=== PATIENT | female | born 1940 | race Two or more races ===

== ENCOUNTER 2024-07-14 17:21 | Inpatient (IN) | payer OTHER ==
[~2024-07-14] VITALS: Ht 152.4 cm; Wt 68.0 kg
[2024-07-14] MEDS ORDERED: 0.9 % SODIUM CHLORIDE 1,000 ML IV SCH ×2 (18:15→22:30)
--- NOTE | 2024-07-14 19:27 | NUR ---
SE REALIZA LAB CAM ORDEN MEDICA BAJO MEDIDAS ASEPTICAS. SE ORIENTA PTE QUIEN REFIERE ENTENDER Y ACEPTAR.
[2024-07-14 20:07] LABS: BASO % 0.4 % (0.1-1.2); EOS % 1.3 % (0.7-7.0); HEMATOCRIT 17.9 % (34.1-44.9); HEMOGLOBIN 6.1 g/dL (11.2-15.7); LYMPH % 41.8 % (19.3-53.1); MEAN CORPUSCULAR HEMOGLOBIN 36.5 pg (25.6-32.2); MONO % 7.1 % (4.7-12.5); PLATELET COUNT 209 K/uL (163-369); RED BLOOD COUNT 1.67 M/uL (3.93-5.22)
[2024-07-14 20:08] LABS: EOS # 0.09 (0.04-0.54); LYMPH # 2.99 (1.18-3.74); NEUT # 3.39 (1.56-6.13)
[2024-07-14 20:13] LABS: INR < 0.93; PARTIAL THROMBOPLASTIN TIME 24.4 SECONDS (22.0-34.0)
[2024-07-14 20:18] LABS: ALBUMIN 3.6 gm/dL (3.4-5.0); BILIRUBIN TOTAL 1.44 mg/dL (0.3-1.2); CALCIUM 8.3 mg/dL (8.5-10.1); CREATININE SERUM 0.93 mg/dL (0.55-1.02); GFR 57.3; GLOBULINA 3.3 G/DL (2.4-3.5); POTASSIUM 4.12 mEq/L (3.5-5.1); TOTAL PROTEIN 6.9 gm/dL (6.4-8.2)
[2024-07-14] MEDS ORDERED: FUROsemide 20 MG/2 ML VIAL IV SCH (21:00)
[2024-07-14] MEDS ORDERED: FAMOTIDINE/PF 20 MG in 0.9 % SODIUM CHLORIDE 8 ML IV PUSH SCH (22:20)
--- NOTE | 2024-07-14 22:21 | NUR ---
SE ORIENTA PTE SOBRE TX A SEGUIR, LA MISMA REFIERE ENTENDER. PTE FIRMA CONSENTIMIENTO DE TRANSFUSION. SE JOSE MUESTRAS DE TUBOS PILOTOS. SE LLAMA A BANCO DE TIBURCIO PARA ACLARAR ANA SOBRE QUE PTE TIENE DIFERENTE NOMBRE EN PLAN MEDICO PRIMARIO Y PLAN MEDICO SECUNDARIO. PERSONAL DE BANCO REFIERE QUE DEBE TENER EN LA REQUZICION EL MISMO NOMBRE QUE TIENE EN SHANNON PLAN PRIMARIO. SE SACA COPIA DE ID Y PLAN PRIMARIO Y SE ENVIA JUNTO A REQUIZISICON. SE LLEVA REQUIZICION A LAB, LA VERIFICA Y LLAMA A BANCO DE TIBURCIO PERSONAL DE LAB FIGUEROA.
[2024-07-14] MEDS ORDERED: ONDANSETRON HCL 4 MG in 0.9 % SODIUM CHLORIDE 50 ML IV PRN (22:30)
[2024-07-15 03:02] VITALS: BP 133/69
[2024-07-15 04:20] VITALS: BP 128/66
[2024-07-15 08:21] VITALS: BP 113/59
[2024-07-15] MEDS ORDERED: IRON FUM,PS/FOLIC/BCOMP,C NO.9 1 CAP CAPSULE PO SCH (09:00)
[2024-07-15] MEDS ORDERED: LISINOPRIL 10 MG TABLET PO SCH (09:00)
[2024-07-15] MEDS ORDERED: DIATRIZOATE MEGLUMINE, SODIUM 30 ML BOTTLE PO NR (09:00)
[2024-07-15 11:54] LABS: FOLIC ACID 16.38 ng/ml (4.78-20)
[2024-07-15 13:09] LABS: PH,URINE 5.5 (5.0-8.0); URINE APPEARANCE Clear; URINE BILIRRUBIN Negative (NEGATIVE); URINE BLOOD Trace; URINE COLOR Yellow; URINE GLUCOSE Negative (NEGATIVE); URINE KETONE Negative (NEGATIVE); URINE LEUKOCYTE Small; URINE NITRATE Negative; URINE PROTEIN Negative (NEGATIVE); URINE UROBILINOGEN 0.2 E.U./dl
[2024-07-15 13:13] LABS: URINE EPITHELIAL CELLS 32.6 uL (0.0-38.8); URINE RBC 8.8 uL (0.0-20.8); URINE WBC 14.7 uL (0.0-23.2)
[2024-07-15 13:24] LABS: URINE CAST 0.14 uL (0.0-1.40)
[2024-07-15 16:00] VITALS: BP 138/61; O2SAT 95
[2024-07-16 01:16] VITALS: BP 145/70
[2024-07-16 07:13] LABS: FERRITIN 87.7 NG/ML (8-252)
[2024-07-16 08:00] VITALS: BP 123/65; O2SAT 94
[2024-07-16 13:12] LABS: BASO % 0.5 % (0.1-1.2); EOS # 0.11 (0.04-0.54); EOS % 1.8 % (0.7-7.0); LYMPH # 2.47 (1.18-3.74); LYMPH % 40.6 % (19.3-53.1); MEAN CORPUSCULAR HEMOGLOBIN 36.8 pg (25.6-32.2); MONO # 0.46 (0.24-0.82); MONO % 7.6 % (4.7-12.5); NEUT # 2.96 (1.56-6.13); NEUT % 48.5 % (34.0-71.1); PLATELET COUNT 203 K/uL (163-369); RED BLOOD COUNT 1.74 M/uL (3.93-5.22); RED CELL DISTRIBUTION WIDTH 23.5 % (11.6-14.4)
[2024-07-16 13:26] LABS: HEMATOCRIT 19.2 % (34.1-44.9); HEMOGLOBIN 6.4 g/dL (11.2-15.7)
[2024-07-16 17:06] VITALS: BP 118/68; O2SAT 96
[2024-07-16 20:59] LABS: ob NEGATIVE (NEGATIVE)
[2024-07-17 00:41] VITALS: BP 139/67
[2024-07-17 08:00] VITALS: BP 149/69; O2SAT 94
[2024-07-17] MEDS ORDERED: DIPHENHYDRAMINE HCL 50 MG/ML VIAL 1ML ONE (11:51)
[2024-07-17] MEDS ORDERED: METHYLPREDNISOLONE SOD SUCC 40 MG VIAL ONE (11:52)
[2024-07-17] MEDS ORDERED: METHYLPREDNISOLONE SOD SUCC 40 MG VIAL IV SCH (12:15)
[2024-07-17] MEDS ORDERED: DIPHENHYDRAMINE HCL 50 MG/ML VIAL 1ML IV SCH (12:15)
[2024-07-18 02:12] VITALS: BP 163/82
[2024-07-18 09:21] VITALS: BP 153/84; O2SAT 96
[2024-07-18 16:45] VITALS: BP 146/62; O2SAT 97
[2024-07-18 19:57] LABS: BASO % 0.5 % (0.1-1.2); EOS # 0.07 (0.04-0.54); EOS % 1.1 % (0.7-7.0); LYMPH # 2.24 (1.18-3.74); LYMPH % 36.4 % (19.3-53.1); MEAN CORPUSCULAR HEMOGLOBIN 33.7 pg (25.6-32.2); MONO # 0.43 (0.24-0.82); NEUT # 3.33 (1.56-6.13); NEUT % 54.2 % (34.0-71.1); PLATELET COUNT 161 K/uL (163-369); RED BLOOD COUNT 2.58 M/uL (3.93-5.22); RED CELL DISTRIBUTION WIDTH 21.2 % (11.6-14.4)
[2024-07-18 20:01] LABS: HEMATOCRIT 25.9 % (34.1-44.9); HEMOGLOBIN 8.7 g/dL (11.2-15.7)
[2024-07-19 02:51] VITALS: BP 145/80; O2SAT 94
[2024-07-19 08:47] VITALS: BP 122/55
== END 2024-07-19 15:05 | disposition home or self-care (01) | DRG 812 ==
LOC: ER 17:21 → MEDI 22:33
PROVIDERS: General Practice; Internal Medicine Hematology & Oncology; ADMIT Student in an Organized Health Care Education/Training Program; ATTEND Student in an Organized Health Care Education/Training Program
PROC: BW21ZZZ Computerized Tomography (CT Scan) of Abdomen and Pelvis (ICD-10-PCS; 2024-07-14)
PROC: 30233N1 Transfusion of Nonautologous Red Blood Cells into Peripheral Vein, Percutaneous Approach (ICD-10-PCS; principal; 2024-07-17)
DX: D64.9 Anemia, unspecified (principal); I10 Essential (primary) hypertension